=== PATIENT | female | born 1955 | race Caucasian/White ===

== ENCOUNTER → 2017-11-04 09:10 | Outpatient (CLI) | payer OTHER, SELFPAY ==
[2017-11-04 10:58] LABS: Add Manual Diff / Slide Review NO; Basophils Percent Auto 0.8 % (0-2); Eosinophils Percent Auto 1.1 % (2-4); Hematocrit 46.5 % (36-46); Hemoglobin 15.8 g/dL (12.0-16.0); Lymphocytes Percent Auto 24.5 % (25-40); Mean Corpuscular Hemoglobin 34.1 PG (26-34); Mean Corpuscular Volume 100.4 fL (80-100); Monocytes Percent Auto 7.3 % (3-14); Neutrophils Absolute Auto 4500 /uL (3000-5900); Neutrophils Percent Auto 66.3 % (50-75); Platelet Count 252 X10^3/uL (150-400); Red Blood Cell Count 4.64 X10^6/uL (4.0-5.2); Red Cell Distribution Width 13.3 % (11.6-14.8); White Blood Cell Count 6.8 X10^3/uL (4.5-11.0)
[2017-11-04 11:36] LABS: Alanine Aminotransferase 26 IU/L (9-52); Albumin 4.4 g/dL (3.5-5.0); Albumin Globulin Ratio 1.7 (1.0-2.8); Alkaline Phosphatase 47 U/L (38-126); Aspartate Aminotransferase 34 IU/L (14-36); BUN Creatinine Ratio 16.3 (6-22); Bilirubin Total 0.4 mg/dL (0.2-1.3); Blood Urea Nitrogen 13 mg/dL (7-17); Calcium 9.6 mg/dL (8.4-10.2); Carbon Dioxide 33 mmol/L (22-32); Chloride 104 mmol/L (98-107); Cholesterol 198 mg/dL (140-199); Estimated Glomerular Filt Rate > 60.0 mL/min (>60); Globulin 2.6 g/dL (1.7-4.1); Glucose 102 mg/dL (80-110); HDL Cholesterol 83 mg/dL (40-60); HEMOLYSIS < 15 (0-50); LDL Cholesterol Calculated 94 mg/dL (<100); Sodium 144 mmol/L (137-145); Triglycerides 106 mg/dL (35-150)
[2017-11-04 11:37] LABS: Potassium 5.6 mmol/L (3.4-5.1)
[2017-11-04 11:43] LABS: Creatinine Urine Random 42.7 mg/dL
[2017-11-04 11:48] LABS: Microalbumin Urine Random < 0.6 mg/dL (0-1.6)
[2017-11-04 12:00] LABS: Thyroid Stimulating Hormone 3.29 uIU/mL (0.47-4.68)
== END ==
PROVIDERS: Visit Provider Registered Nurse
DX: I10 Essential (primary) hypertension (principal)
CPT/HCPCS: 36415; 80053; 80061; 82043; 82570; 84443; 85025

== ENCOUNTER → 2017-12-05 12:46 | Outpatient (CLI) | payer OTHER, SELFPAY ==
--- NOTE | 2017-12-05 12:53 | DI.MG.S_ITS ---
BILATERAL DIGITAL SCREENING MAMMOGRAM 3D/2D WITH CAD: 12/05/2017 CLINICAL: Routine screening. Comparison is made to exams dated: 06/06/2015 mammogram, 09/28/2012 mammogram, and 03/08/2009 mammogram - [facility]. The tissue of both breasts is heterogeneously dense. This may lower the sensitivity of mammography. Current study was also evaluated with a Computer Aided Detection (CAD) system. No significant masses, calcifications, or other findings are seen in either breast. There has been no significant interval change. IMPRESSION: NEGATIVE There is no mammographic evidence of malignancy. A 1 year screening mammogram is recommended.(12/06/2018) This exam was interpreted at Station ID: [id number]. NOTE: For mammograms, a report in lay terms will be sent to the patient. Approximately 15% of breast malignancies will not be visualized mammographically. In the management of a palpable breast mass, a negative mammogram must not discourage biopsy of a clinically suspicious lesion. Electronically Signed By: Marie castrejon/clayton:12/05/2017 14:30:55 letter sent: Normal Exam ACR BI-RADS Category 1: Negative 3341F
--- NOTE | 2017-12-05 12:53 | DI.RAD.S_ITS ---
This blank DEXA report has been sent in error by the PACS system. The correct and complete report will be forthcoming in 1-2 days. Thank you for your patience and understanding. Dictated by: Amari Brand M.D. on 12/05/2017 at 13:47 Approved by: Amari Brand M.D. on 12/05/2017 at 13:49
[2017-12-05 14:21] LABS: Alanine Aminotransferase 25 IU/L (9-52); Albumin 4.4 g/dL (3.5-5.0); Alkaline Phosphatase 47 U/L (38-126); Aspartate Aminotransferase 22 IU/L (14-36); BUN Creatinine Ratio 25.7 (6-22); Bilirubin Total 0.3 mg/dL (0.2-1.3); Blood Urea Nitrogen 18 mg/dL (7-17); Calcium 9.8 mg/dL (8.4-10.2); Carbon Dioxide 33 mmol/L (22-32); Chloride 97 mmol/L (98-107); Estimated Glomerular Filt Rate > 60.0 mL/min (>60); Globulin 2.2 g/dL (1.7-4.1); Glucose 108 mg/dL (80-110); HEMOLYSIS < 15 (0-50); Potassium 3.9 mmol/L (3.4-5.1); Sodium 139 mmol/L (137-145); Total Protein 6.6 g/dL (6.3-8.2)
== END ==
PROVIDERS: Family Provider Family Medicine; PCP Family Medicine; Visit Provider Registered Nurse
DX: Z12.31 Encounter for screening mammogram for malignant neoplasm of breast (principal); Z13.820 Encounter for screening for osteoporosis; M81.0 Age-related osteoporosis without current pathological fracture; Z78.0 Asymptomatic menopausal state; I10 Essential (primary) hypertension; F17.200 Nicotine dependence, unspecified, uncomplicated; Z85.42 Personal history of malignant neoplasm of other parts of uterus
CPT/HCPCS: 36415; 77063; 77067; 77080; 80053

== ENCOUNTER → 2019-08-18 15:26 | Outpatient (CLI) | payer OTHER, MEDICARE, SELFPAY ==
[2019-08-18 17:04] LABS: Appearance Urine UA SL CLOUDY; Bilirubin Urine UA NEGATIVE (NEGATIVE); Color Urine UA YELLOW; Glucose Urine UA NEGATIVE (Negative); Ketones Urine UA NEGATIVE (NEGATIVE); Leukocyte Esterase Urine UA 2+ (NEGATIVE); Nitrite Urine UA POSITIVE (Negative); Occult Blood Urine UA 3+ (Negative); Protein Urine UA 1+ (Negative); Specific Gravity Urine UA <=1.005 (1.000-1.035); Urobilinogen Urine UA 0.2 E.U./dL (0.2)
[2019-08-18 17:14] LABS: Amorphous Sediment Urine 1+; Bacteria Urine Moderate (10-30); RBC Urine 1-5/HPF (0-5/HPF); Squamous Epithelial Cell Urine 0-1 /HPF (0-5/HPF); WBC Urine 10-30/HPF (0-5/HPF)
[2019-08-18 17:15] LABS: Culture Indicated Urine Specimen Cultured
== END ==
PROVIDERS: PCP Student in an Organized Health Care Education/Training Program; Referring Provider Student in an Organized Health Care Education/Training Program; Visit Provider Student in an Organized Health Care Education/Training Program
DX: R30.0 Dysuria (principal)
CPT/HCPCS: 81001; 87077; 87086; 87186

== ENCOUNTER → 2019-08-24 15:55 | Outpatient (CLI) | payer OTHER, MEDICARE, SELFPAY ==
[2019-08-24 18:12] LABS: BUN Creatinine Ratio 11.8 (6-22); Blood Urea Nitrogen 8 mg/dL (7-17); Calcium 9.8 mg/dL (8.4-10.2); Carbon Dioxide 26 mmol/L (22-32); Chloride 96 mmol/L (98-107); Estimated Glomerular Filt Rate > 60.0 mL/min (>60); Glucose 85 mg/dL (80-110); HEMOLYSIS < 15 (0-50); Potassium 4.4 mmol/L (3.4-5.1); Sodium 132 mmol/L (137-145)
== END ==
PROVIDERS: PCP Student in an Organized Health Care Education/Training Program; Referring Provider Student in an Organized Health Care Education/Training Program; Visit Provider Student in an Organized Health Care Education/Training Program
DX: I10 Essential (primary) hypertension (principal)
CPT/HCPCS: 36415; 80048

== ENCOUNTER → 2019-09-13 11:09 | Outpatient (CLI) | payer OTHER, MEDICARE, SELFPAY ==
[2019-09-14 09:57] LABS: COVID19 Sendout Not Detected (Not Detect)
== END ==
PROVIDERS: PCP Student in an Organized Health Care Education/Training Program; Visit Provider Student in an Organized Health Care Education/Training Program
DX: Z01.812 Encounter for preprocedural laboratory examination (principal)
CPT/HCPCS: 87635

== ENCOUNTER 2019-09-16 06:26 | Day surgery (SDC) | payer OTHER, SELFPAY ==
[2019-09-16] MEDS: CATARACT EYE COMPOUND (10 DROPS/SYRINGE) 3 DROPS EYE-OP (06:56)
[2019-09-16] MEDS: PROPARACAINE 0.5% OPHTH SOL 2 DROPS EYE-OP (06:56)
[2019-09-16 06:58] VITALS: BP 160/81; PULSE 77; RESP 16; TEMP 36.4; O2SAT 98; BMI 22.4
--- NOTE | 2019-09-16 07:29 | PM.PREOP ---
Pre-operative Note COVID-19 COVID-19 status: Negative Result date/Date tested (Pos, Neg/Pending): 09/13/19 Interval Note History & Physical reviewed/Exam performed by Physician: Yes Changes to H&P: No
--- NOTE | 2019-09-16 07:51 | SUR.OPER ---
Supine on eye stretcher, head on extension cradle secured with tape. Arms tucked at sides with blanket. Pillow under knees.
[2019-09-16] MEDS: PHENYLEPHRINE/LIDOCAINE VIAL (OR) 0.2 ML EYE-OP (07:58)
[2019-09-16] MEDS: MOXIFLOXACIN INJ 5 MG/ML VIAL EYE-OP (07:59)
[2019-09-16] MEDS: CHONDROIDTIN/SOD HYALURONATE 1.05 ML SYRINGE INTRAOCULA (07:59)
[2019-09-16] MEDS: TETRACAINE 0.5% OPHTH DROPS 4 ML 2 DROPS EYE-OP (08:00)
[2019-09-16] MEDS: LIDOCAINE 2% INJ SDV 2 ML INJ (08:00)
[2019-09-16] MEDS: BALANCED SALT IRRIG SOLN NO.2 500 ML, EPINEPHrine 1 MG IRR (08:01)
--- NOTE | 2019-09-16 08:13 | PM.OP.1 ---
Procedure & Clinicians Procedure: Cataract extraction with intraocular lens implant, right. Same procedure as scheduled: Yes Indications: Visually significant age related nuclear sclerosis Surgeon: Jose Armando Veras Click Yes if Unassisted: Yes Anesthesia Type: MAC +/- Operative Notes Procedure in detail: The patient was brought to the operating suite. The correct patient, surgical site and lens were confirmed. 0.5 % tetracaine drops were placed in the right eye. The patient was prepped and draped in the typical sterile manner. A lid speculum was placed in the eye. 2% lidocaine was placed on the eye. A paracentesis port was created with a side-port blade. 0.1 mL of 1% preservative free lidocaine with phenylephrine was injected into the anterior chamber. Viscoelastic was injected into the anterior chamber. A 2.6mm keratome was used to create a clear corneal temporal incision. Cystotome and Utrata forceps were used to create a continuous curvilinear capsulorrhexis. Balanced salt solution was used to hydrodissect the nucleus. Phacoemulsification was used to remove the lens. The capsular bag was inflated with viscoelastic. A Navarro ZCBOO +22.5D lens was inserted into the capsule. Viscoelastic was removed and the wound hydrated. The wound was found to be leak free and the eye was assessed to be at normal physiologic pressure. 0.1mL Moxifloxacin (5mg/mL) preservative free was injected into the anterior chamber. The lid speculum was removed and the patient left the operating room in excellent condition. Complications: none Post-operative Condition: stable Disposition: same day surgery
[2019-09-16 08:16] VITALS: BP 140/67; PULSE 69; RESP 12; TEMP 36.1; O2SAT 97
== END 2019-09-16 08:34 | disposition home or self-care (01) ==
LOC: OR 06:28
PROVIDERS: PCP Student in an Organized Health Care Education/Training Program; Referring Provider Ophthalmology; Visit Provider Ophthalmology
PROC: (CPT 66984; principal; 2019-09-16 07:45)
DX: H25.11 Age-related nuclear cataract, right eye (principal); I10 Essential (primary) hypertension; F32.9 Major depressive disorder, single episode, unspecified
CPT/HCPCS: 66984 ×2; J0171; J2250

== ENCOUNTER → 2019-09-27 14:39 | Outpatient (CLI) | payer OTHER, SELFPAY ==
[2019-09-28 20:27] LABS: COVID19 Sendout Not Detected (Not Detect)
== END ==
PROVIDERS: PCP Student in an Organized Health Care Education/Training Program; Visit Provider Physician Assistant
DX: Z01.812 Encounter for preprocedural laboratory examination (principal)
CPT/HCPCS: 87635

== ENCOUNTER 2019-09-30 06:43 | Day surgery (SDC) | payer OTHER, SELFPAY ==
[2019-09-30] MEDS: PROPARACAINE 0.5% OPHTH SOL 2 DROPS EYE-OP (07:36)
[2019-09-30] MEDS: CATARACT EYE COMPOUND (10 DROPS/SYRINGE) 3 DROPS EYE-OP (07:37)
[2019-09-30 07:39] VITALS: BP 147/78; PULSE 74; RESP 16; TEMP 36.3; O2SAT 94; BMI 22.2
--- NOTE | 2019-09-30 08:28 | PM.PREOP ---
Pre-operative Note COVID-19 COVID-19 status: Negative Result date/Date tested (Pos, Neg/Pending): 09/27/19 Interval Note History & Physical reviewed/Exam performed by Physician: Yes Changes to H&P: No
[2019-09-30] MEDS: MOXIFLOXACIN INJ 5 MG/ML VIAL EYE-OP (08:37)
[2019-09-30] MEDS: PHENYLEPHRINE/LIDOCAINE VIAL (OR) 0.2 ML EYE-OP (08:37)
[2019-09-30] MEDS: BALANCED SALT IRRIG SOLN NO.2 500 ML, EPINEPHrine 1 MG IRR (08:37)
[2019-09-30] MEDS: TETRACAINE 0.5% OPHTH DROPS 4 ML 2 DROPS EYE-OP (08:38)
[2019-09-30] MEDS: BALANCED SALT IRRIG SOLN NO.2 15 ML 5 ML IRR (08:38)
[2019-09-30] MEDS: LIDOCAINE 2% INJ SDV 2 ML INJ (08:38)
--- NOTE | 2019-09-30 09:00 | PM.OP.1 ---
Procedure & Clinicians Procedure: Cataract extraction with intraocular lens implant, left. Same procedure as scheduled: Yes Indications: Visually significant age related nuclear sclerosis Surgeon: Jose Armando Veras Click Yes if Unassisted: Yes Anesthesia Type: MAC +/- Operative Notes Procedure in detail: The patient was brought to the operating suite. The correct patient, surgical site and lens were confirmed. 0.5 % tetracaine drops were placed in the left eye. The patient was prepped and draped in the typical sterile manner. A lid speculum was placed in the eye. 2% lidocaine was placed on the eye. A paracentesis port was created with a side-port blade. 0.1 mL of 1% preservative free lidocaine with phenylephrine was injected into the anterior chamber. Viscoelastic was injected into the anterior chamber. A 2.6mm keratome was used to create a clear corneal temporal incision. Cystotome and Utrata forceps were used to create a continuous curvilinear capsulorrhexis. Balanced salt solution was used to hydrodissect the nucleus. Phacoemulsification was used to remove the lens. The capsular bag was inflated with viscoelastic. A Navarro ZCBOO 21.5D lens was inserted into the capsule. Viscoelastic was removed and the wound hydrated. The wound was found to be leak free and the eye was assessed to be at normal physiologic pressure. 0.1mL Moxifloxacin (5mg/mL) preservative free was injected into the anterior chamber. The lid speculum was removed and the patient left the operating room in excellent condition. Complications: none Post-operative Condition: stable Disposition: same day surgery
[2019-09-30 09:03] VITALS: BP 142/67; PULSE 73; RESP 16; TEMP 36.7; O2SAT 97
--- NOTE | 2019-09-30 10:09 | SUR.PHASEII ---
0910 Care turned over to Parth Downey RN to take the patient out the door when ride arrived. Ambulated her to the bathroom, voided, stable on feet, tolerated PO intake well. Stable.
== END 2019-09-30 09:40 | disposition home or self-care (01) ==
LOC: OR 06:44
PROVIDERS: PCP Student in an Organized Health Care Education/Training Program; Referring Provider Ophthalmology; Visit Provider Ophthalmology
PROC: (CPT 66984; principal; 2019-09-30 08:15)
DX: H25.12 Age-related nuclear cataract, left eye (principal); I10 Essential (primary) hypertension
CPT/HCPCS: 66984; J0171; J2250

== ENCOUNTER → 2019-11-24 14:27 | Outpatient (CLI) | payer OTHER, MEDICARE, SELFPAY ==
--- NOTE | 2019-11-24 14:29 | DI.MG.S_ITS ---
BILATERAL DIGITAL SCREENING MAMMOGRAM 3D/2D WITH CAD: 11/24/2019 CLINICAL: Family history of breast cancer. Routine screening. Comparison is made to exams dated: 12/05/2017 mammogram, 06/06/2015 mammogram, and 09/28/2012 mammogram - [facility]. The tissue of both breasts is heterogeneously dense. This may lower the sensitivity of mammography. Current study was also evaluated with a Computer Aided Detection (CAD) system. There are linear fine calcifications in the right breast at 1 o'clock middle depth. These are more prominent and increased in number. No other significant masses, calcifications, or other findings are seen in either breast. IMPRESSION: INCOMPLETE: NEEDS ADDITIONAL IMAGING EVALUATION The linear fine calcifications in the right breast resemble vascular calcifications and are indeterminate. Mediolateral and spot magnification views are recommended. This exam was interpreted at Station ID: [id number]. NOTE: For mammograms, a report in lay terms will be sent to the patient. Approximately 15% of breast malignancies will not be visualized mammographically. In the management of a palpable breast mass, a negative mammogram must not discourage biopsy of a clinically suspicious lesion. Electronically Signed By: Ken Hernandez M.D. aty/:11/24/2019 14:54:04 letter sent: Additional Imaging Needed ACR BI-RADS Category 0: Incomplete 3340F
--- NOTE | 2019-11-24 14:29 | DI.RAD.S_ITS ---
PROCEDURE: XR DEXA AXIAL SKELETON INDICATIONS: Osteoporosis COMPARISON: [facility], CR, XR DEXA AXIAL SKELETON, 12/05/2017, 13:36. FINDINGS: This blank DEXA report has been sent in error by the PACS system. The correct and complete report will be forthcoming in 1-2 days. Thank you for your patience and understanding. Dictated by: Jessica Chakraborty MD, PhD on 11/24/2019 at 16:29 Approved by: Jessica Chakraborty MD, PhD on 11/24/2019 at 16:29
== END ==
PROVIDERS: PCP Student in an Organized Health Care Education/Training Program; Referring Provider Student in an Organized Health Care Education/Training Program; Visit Provider Student in an Organized Health Care Education/Training Program
DX: Z12.31 Encounter for screening mammogram for malignant neoplasm of breast (principal); Z80.3 Family history of malignant neoplasm of breast; M85.88 Other specified disorders of bone density and structure, other site; Z78.0 Asymptomatic menopausal state; F17.200 Nicotine dependence, unspecified, uncomplicated
CPT/HCPCS: 77063; 77067; 77080

== ENCOUNTER → 2019-12-22 08:27 | Outpatient (CLI) | payer OTHER, SELFPAY ==
--- NOTE | 2019-12-22 08:29 | DI.MG.S_ITS ---
UNILATERAL RIGHT DIGITAL DIAGNOSTIC MAMMOGRAM 3D/2D WITH ADDITIONAL VIEWS: 12/22/2019 CLINICAL: Additional evaluation requested from prior study. Comparison is made to exams dated: 11/24/2019 mammogram, 12/05/2017 mammogram, and 06/06/2015 mammogram - [facility]. The tissue of right breast is heterogeneously dense. This may lower the sensitivity of mammography. The grouped fine calcifications in the right breast at 1 o'clock middle depth are not seen on additional views. No other significant masses or calcifications are seen in the breast. IMPRESSION: BENIGN There is no mammographic evidence of malignancy. A 1 year screening mammogram is recommended. This exam was interpreted at Station ID: [id number]. NOTE: For mammograms, a report in lay terms will be sent to the patient. Approximately 15% of breast malignancies will not be visualized mammographically. In the management of a palpable breast mass, a negative mammogram must not discourage biopsy of a clinically suspicious lesion. Electronically Signed By: Faizan parsons/:12/22/2019 09:36:43 letter sent: Normal Exam ACR BI-RADS Category 2: Benign Finding(s) 3342F
== END ==
PROVIDERS: PCP Student in an Organized Health Care Education/Training Program; Referring Provider Student in an Organized Health Care Education/Training Program; Visit Provider Student in an Organized Health Care Education/Training Program
DX: R92.8 Other abnormal and inconclusive findings on diagnostic imaging of breast (principal)
CPT/HCPCS: 77065; G0279

== ENCOUNTER → 2022-11-07 08:41 | Outpatient (CLI) | payer OTHER, SELFPAY ==
[2022-11-07 09:58] LABS: Add Manual Diff / Slide Review NO; Basophils Absolute Auto 100 /uL (0-100); Eosinophils Absolute Auto 0 /uL (0-450); Eosinophils Percent Auto 0.6 % (2-4); Hematocrit 44.9 % (36-46); Hemoglobin 15.4 g/dL (12.0-16.0); Lymphocytes Absolute Auto 1500 /uL (1100-4500); Lymphocytes Percent Auto 29.2 % (25-40); Mean Corpuscular HGB Conc 34.3 % (30-36); Mean Corpuscular Hemoglobin 34.3 PG (26-34); Monocytes Absolute Auto 500 /uL (0-900); Monocytes Percent Auto 9.6 % (3-14); Neutrophils Absolute Auto 3100 /uL (1500-7000); Neutrophils Percent Auto 59.6 % (50-75); Platelet Count 237 X10^3/uL (150-400); Red Blood Cell Count 4.49 X10^6/uL (4.0-5.2); White Blood Cell Count 5.1 X10^3/uL (4.5-11.0)
[2022-11-07 10:51] LABS: Alanine Aminotransferase 31 IU/L (<35); Albumin 4.5 g/dL (3.5-5.0); Albumin Globulin Ratio 1.5 (1.0-2.8); Alkaline Phosphatase 56 U/L (38-126); Aspartate Aminotransferase 39 IU/L (14-36); BUN Creatinine Ratio 14.5 (6-22); Bilirubin Total 0.4 mg/dL (0.2-1.3); Blood Urea Nitrogen 9 mg/dL (7-17); Calcium 9.7 mg/dL (8.4-10.2); Carbon Dioxide 31 mmol/L (22-32); Chloride 97 mmol/L (98-107); Cholesterol 283 mg/dL (140-199); Estimated Glomerular Filt Rate > 60 mL/min (>60); Glucose 104 mg/dL (80-110); HDL Cholesterol 86 mg/dL (40-60); HEMOLYSIS < 15 (0-50); LDL Cholesterol Calculated 176 mg/dL (<100); Potassium 5.2 mmol/L (3.4-5.1); Sodium 136 mmol/L (137-145); Total Protein 7.5 g/dL (6.3-8.2); Triglycerides 103 mg/dL (35-150)
[2022-11-07 11:19] LABS: TSH w/ Reflex to FT4 2.84 uIU/mL (0.47-4.68)
[2022-11-07 11:34] LABS: Hep C Virus Ab w/Reflex Quant NEGATIVE s/c (NEGATIVE)
[2022-11-07 15:37] LABS: Creatinine Urine Random 86.9 mg/dL
[2022-11-07 15:41] LABS: Microalbumin Urine Random 0.7 mg/dL (0-1.6)
== END ==
PROVIDERS: PCP Family Medicine; Referring Provider Family Medicine; Visit Provider Family Medicine
DX: E78.2 Mixed hyperlipidemia (principal); F34.1 Dysthymic disorder; I10 Essential (primary) hypertension; M81.0 Age-related osteoporosis without current pathological fracture
CPT/HCPCS: 36415; 80053; 80061; 82043; 82570; 84443; 85025; 86803

== ENCOUNTER → 2022-11-25 | Outpatient (CLI) | payer OTHER, SELFPAY ==
--- NOTE | 2022-11-25 13:44 | DI.MG.S_ITS ---
BILATERAL DIGITAL SCREENING MAMMOGRAM 3D/2D WITH CAD: 11/25/2022 CLINICAL: Routine screening. Family history of breast cancer. Comparison is made to exams dated: 11/24/2019 mammogram, 12/05/2017 mammogram, and 06/06/[address] - [facility]. Both breasts are heterogeneously dense, which may obscure small masses (category c / 51-75% glandular tissue). Current study was also evaluated with a Computer Aided Detection (CAD) system. No significant masses, calcifications, or other findings are seen in either breast. IMPRESSION: NEGATIVE There is no mammographic evidence of malignancy. A 1 year screening mammogram is recommended. Based on the Tyrer Cuzick model (a risk assessment model) the patient's lifetime risk is 16.6% and her 10 year risk is 9.4%. According to the ACR, ACS, and NCCN guidelines, an annual breast MRI exam along with mammogram is recommended if the patient's lifetime risk is 20% or greater. This exam was interpreted at Station ID: [id number]. NOTE: For mammograms, a report in lay terms will be sent to the patient. Approximately 15% of breast malignancies will not be visualized mammographically. In the management of a palpable breast mass, a negative mammogram must not discourage biopsy of a clinically suspicious lesion. Electronically Signed By: Rhonda rosado/clayton:11/25/2022 18:15:14 letter sent: Normal Exam ACR BI-RADS Category 1: Negative 3341F
--- NOTE | 2022-11-25 13:44 | DI.RAD.S_ITS ---
Bone Density Report Name: MANDY TAPIA Age: 67 Sex: Female Ethnicity: White Date of : 1955 Indication: osteopenia; Referring Provider: JOSELO PEPE Study: Bone densitometry was performed. Exam Date: November 25, 2022 Accession number: [id number] Bone Density: Region BMD T-score Z-score Classification AP Spine(L1, L2) 0.816 -1.5 0.4 Osteopenia Femoral Neck (Left) 0.625 -2.0 -0.3 Osteopenia Total Hip (Left) 0.701 -2.0 -0.6 Osteopenia Femoral Neck (Right) 0.600 -2.2 -0.5 Osteopenia Total Hip (Right) 0.677 -2.2 -0.8 Osteopenia Total Hip Mean 0.689 -2.1 -0.7 Osteopenia World Health Organization criteria for BMD impression classify patients as: Normal (T-score at or above -1.0), Osteopenia (T-score between -1.0 and -2.5), or Osteoporosis (T-score at or below -2.5). 10-year Fracture Risk(1): Major Osteoporotic Fracture 16% Hip Fracture 6.4% Reported Risk Factors: [place] (), Neck BMD=0.600, BMI=22.5, smoking, alcohol use (1) FRAX(R) Version 3.08. Fracture probability calculated for an untreated patient. Fracture probability may be lower if the patient has received treatment. Previous Exams: -- Region Exam Age BMD T-score BMD Change BMD Change Date g/cm2 vs Baseline vs Previous -- AP Spine (L1-L2) 11/25/2022 67 0.816 -1.5 -0.029 (-3.4%)# -0.029 (-3.4%)# 11/24/2019 64 0.845 -1.2 Total Hip(Left) 11/25/2022 67 0.701 -2.0 0.006 (0.8%)# 0.006 (0.8%)# 11/24/2019 64 0.695 -2.0 Total Hip(Right) 11/25/2022 67 0.677 -2.2 -0.013 (-1.9%)# -0.013 (-1.9%)# 11/24/2019 64 0.690 -2.1 -- *Denotes significance at 95% confidence level, LSC for AP Spine = 0.022 g/cm2, LSC for Total Hip = 0.027 g/cm2 # Denotes dissimilar scan types or analysis methods Impression: The patient has low bone mass, based on the Right Total Hip T-score. The patient has an estimated ten-year risk of hip fracture of 6.4% and an estimated ten-year risk of major fracture of 16%, based on the WHO FRAX algorithm. The patient has risk factors, including: smoking, excessive alcohol use. No significant bone loss was observed. Discussion: BONE DENSITY IS LOW AT ONE OR MORE SKELETAL SITES. THE PATIENT'S BMD AND CLINICAL RISK FACTORS CONTRIBUTE TO THIS PATIENT'S INCREASED RISK OF FRACTURE. This patient's lowest T-score is low at one or more skeletal sites. It meets the World Health Organization's (WHO) criteria for low bone mass (T-score between -1.0 and -2.5). The patient's 10-year risk of hip fracture as calculated by FRAX exceeds the threshold where pharmacological therapy is recommended by the National Osteoporosis Foundation (NOF). However, all treatment decisions require clinical judgment and consideration of individual patient factors, including patient preferences, comorbidities, previous drug use, risk factors not captured in the FRAX model (e.g., frailty, falls, vitamin D deficiency, increased bone turnover, interval significant decline in bone density) and possible under or overestimation of fracture risk by FRAX. The patient should follow a healthful lifestyle (good nutrition with adequate calcium and vitamin D, and appropriate weight-bearing exercise). Follow-Up: Consider a repeat BMD and Vertebral Fracture Assessment (VFA) exam in 2 years or sooner if medically necessary, to reassess this patient's status. Reported by: VICENTE ADAMS M.D. on 11/25/2022 3:13:00 PM.
--- NOTE | 2022-11-25 13:44 | DI.CT.S_ITS ---
PROCEDURE: CT LUNG LOW DOSE SCREENING INDICATIONS: 30+ pack year smoking TECHNIQUE: Noncontrast 2.0-2.5 mm thick sections acquired from the pulmonary apices to the posterior costophrenic angles. 7 mm thick axial MIP, and 5 mm coronal and sagittal reformats were then acquired. A low radiation dose technique was utilized. COMPARISON: None. FINDINGS: Image quality: Diagnostic, given the low radiation dose technique. Lungs and pleura: Biapical pleuroparenchymal scarring. Moderate upper lobe predominant centrilobular and paraseptal emphysematous changes. There is an 11 mm nodule within right upper lobe with spiculated margins (3/86). Nodule in the right middle lobe measuring 7 mm and surrounding ground-glass and possible spiculations (3/160). Ground-glass opacity within the right upper lobe (3/60) measuring 6 mm. Scattered calcified granulomas. There are a few additional scattered small nodules measuring 3 mm or less. Focus of peripheral ground-glass within the right lower lobe with lucent lung centrally. Mediastinum: Heart size is normal. Moderate three-vessel coronary artery calcifications. No pericardial effusion. No mediastinal adenopathy by size criteria. Thoracic aorta and central pulmonary arteries are normal in size. Atherosclerotic vascular calcifications. Esophagus is normal in caliber. Small hiatal hernia. Bones and chest wall: No suspicious bony lesions. Degenerative changes of the spine. No vertebral body compression fractures. No axillary or supraclavicular adenopathy by size criteria. Thyroid gland contains a 1.7 cm hypodensity in the right thyroid lobe. Abdomen: Left hepatic lobe cyst. Additional hypodensities within the liver, favored to represent simple cysts. Right hepatic lobe calcification. IMPRESSION: 1. Right upper lobe spiculated nodule with solid component measuring 11 mm. 2. Nodule in the right middle lobe measuring 7 mm with surrounding ground-glass and possible spiculations. 3. Additional scattered micro nodules and foci of ground-glass. 4. Moderate centrilobular and paraseptal emphysematous changes. LUNG-RADS 4 B; recommend PET-CT for further evaluation. Dictated by: Danish Zhu M.D. on 11/25/2022 at 15:47 Approved by: Danish Zhu M.D. on 11/25/2022 at 15:59
== END ==
LOC: MAMMO 13:43
PROVIDERS: PCP Family Medicine; Referring Provider Family Medicine; Visit Provider Family Medicine
DX: Z12.31 Encounter for screening mammogram for malignant neoplasm of breast (principal); M85.851 Other specified disorders of bone density and structure, right thigh; Z78.0 Asymptomatic menopausal state; Z12.2 Encounter for screening for malignant neoplasm of respiratory organs; Z80.3 Family history of malignant neoplasm of breast; R05.3 Chronic cough; F17.210 Nicotine dependence, cigarettes, uncomplicated; Z90.710 Acquired absence of both cervix and uterus
CPT/HCPCS: 71271; 77063; 77067; 77080

== ENCOUNTER 2023-01-06 14:46 | Observation (INO) | payer OTHER, SELFPAY ==
[2023-01-06] VITALS (35 sets, daily range): BP systolic 113–167; BP diastolic 52–88; PULSE 66–99; RESP 11–20; TEMP 35.9–36.6; O2SAT 89–99; BMI 20.9
--- NOTE | 2023-01-06 | DI.CT.S_ITS ---
PROCEDURE: CT DRN/CHEST TUB INSERT THORAX Sedation analgesia for approximately 15 minutes. INDICATIONS: CHEST TUBE PLACEMENT TECHNIQUE: The indications, alternatives, benefits, risks, and possible complications of the procedure were communicated to the patient. Informed written consent from the patient was obtained and placed in the chart. Continuous EKG and hemodynamic monitoring was started by trained personnel. The patient was brought to the CT suite and pot firer spiral CT imaging was performed with localization grid. The appropriate site for percutaneous access to the pneumothorax target was marked, was prepped and draped sterilely, and was infused with local anaesthesia. Under CT guidance, a Chiba needle set was advanced to the pneumothorax. A wire was placed through the Chiba needle and the tract was dilated. A drainage catheter was placed over the wire and into the pneumothorax. Aspiration of the pneumothorax was performed. The drain was secured. The patient was sent for post-procedure monitoring. COMPARISON: [facility], CT, CT BIOPSY LUNG RT, 01/06/2023, 8:45. FINDINGS: Catheter site: Right upper lobe anterior. Needle: 8.5 Malay pigtail drainage catheter. Medications: 1% lidocaine for local anaesthesia. IV Fentanyl and Versed for conscious sedation for 15 minutes (see nursing record). Complications: None. Moderate size pneumothorax is decreased postprocedure. Atelectatic lung on the left is improved. IMPRESSION: Successful CT-guided pigtail pleural drainage catheter was placed in the right upper thorax. Dictated by: Jermain Torres M.D. on 01/06/2023 at 14:10 Approved by: Jermian Torres M.D. on 01/06/2023 at 14:18
--- NOTE | 2023-01-06 06:56 | DI.CT.S_ITS ---
PROCEDURE: CT BIOPSY LUNG RT Sedation analgesia for 20 minutes. INDICATIONS: Suspicion of malignancy TECHNIQUE: The indications, alternatives, benefits, risks, and possible complications of the procedure were communicated to the patient. Informed written consent from the patient was obtained and placed in the chart. Continuous EKG and hemodynamic monitoring was started by trained personnel. The patient was brought to the CT suite and heel scourer spiral CT imaging was performed with localization grid. The appropriate site for percutaneous access to the biopsy target was marked, was prepped and draped sterilely, and was infused with local anaesthesia. Under CT guidance, a core biopsy trocar and needle set was advanced to the biopsy target, and specimen(s) were obtained. The trocar and needle were then removed, and the patient was sent for post-procedure monitoring. COMPARISON: [facility], CT, CT LUNG LOW DOSE SCREENING, 11/25/2022, 13:48. [facility], NH, NH PET CT FUSION SKULL 2 THIGH, 12/11/2022, 9:00. [facility], CT, CT DRN/CHEST TUB INSERT THORAX, 01/06/2023, 12:38. FINDINGS: Biopsy site: Right upper lobe posterior spiculated nodule measuring approximately 1.3 cm. Needle: 18 gauge Temno gauge biopsy needle with introducer trocar. Number of passes: 4 Medications: 1% lidocaine for local anaesthesia. IV Fentanyl and Versed for conscious sedation for 20 minutes (see nursing record). Complications: Small to moderate right pneumothorax. Patient's oxygen saturations were 99% prior to the procedure. The patient was placed on 2 L of oxygen during the procedure. Patient's oxygen saturations were 95% post procedure on 2 L oxygen. IMPRESSION: Successful CT-guided biopsy of right upper lobe lesion. Small to moderate pneumothorax post procedure. Dr. Zuñiga was consulted. Plan to place percutaneous pigtail drainage catheter for pneumothorax evacuation. Dictated by: Jermain Torres M.D. on 01/06/2023 at 14:18 Approved by: Jermain Torres M.D. on 01/06/2023 at 14:23
[2023-01-06 07:56] LABS: Platelet Count 251 X10^3/uL (150-400)
[2023-01-06 08:00] LABS: Prothrombin Time 11.2 SECONDS (10.1-12.7)
[2023-01-06 08:03] LABS: PTT Partial Thromboplastin Tim 36 SECONDS (26-36)
--- NOTE | 2023-01-06 09:52 | PATH_ITS ---
[facility] Accession Number: [id number] No. of containers..01 Tissue . 01 Material submitted: . lung - RIGHT UPPER LOBE LUNG . 01 Diagnosis: A. Right Upper Lobe Lung, Biopsy: Adenocarcinoma, with mixed acinar and lepidic growth patterns. . COMMENT: The immunoprofile (see microscopic description) along with the morphology, is in support of lung primary. Clinical and radiographic correlation is necessary. MRV 01/14/2023 1544 Local . 01 Comment: As part of supervisor vendor quality, Dr. Conchita Werner also reviewed this case and agrees with the interpretation/diagnosis. . Provider Javid Landeros's office is notified of the preliminary findings on this case on 01/14/2023, directly reported to Donna LOPES). . 01 Electronically signed: . Nika Valdivia MD, Pathologist NPI- [id number] . 01 Gross description: . The specimen is received in formalin labeled with the patient's name, , and no additional designation, and consists of four campa-brown needle core biopsies ranging in length from 0.2 to 0.9 cm and averaging 0.1 cm in diameter. The specimen is submitted entirely in cassette A1. ([id number]) /CARMEN 01/07/2023 0956 Local . 01 Microscopic: . A panel of immunostains is performed on block A1 in order to ascertain the origin of the moderately differentiated adenocarcinoma, with appropriately staining external controls. The adenocarcinoma demonstrates the following immunoprofile: . TTF1: Positive (strong and diffuse). Napsin: Positive. CK7: Positive. CK20: Negative. CDX2: Negative. . * This test was developed and its performance characteristics determined by [facility]. It has not been cleared or approved by the U.S. Food and Drug Administration. The FDA has determined that such clearance or approval is not necessary. This test is used for clinical purposes. It should not be regarded as investigational or for research. . 01 Pathologist provided ICD-10: C34.90 . 01 CPT . 639100, G46551, Z06333 Specimen Comment: A courtesy copy of this report has been sent to [phone] Performed at: 01 [facility] [address] [place] [address] [id number] MD Faizan Alex MD Phone: [phone]
[2023-01-06] MEDS: fentaNYL 100 MCG/2 ML INJ IV ×2 (10:12→12:52)
[2023-01-06] MEDS: MIDAZOLAM 2 MG/2 ML VIAL IV (10:12)
--- NOTE | 2023-01-06 10:35 | SUR.PHASEII ---
Pt from Radiology in stretcher [facility] SBAR report from Ally at bedside. Dressing to right upper chest C/D/I. Lung sounds to right side very diminished. Pt denies pain just a discomfort to right anterior chest. Denies SOB. Pt resting on 2L oxygen via [place]. Dr Call here to see patient. Plan for CT placement in the next 30-60 minutes. Call MD for change in O2 Saturation.
[2023-01-06] MEDS: MIDAZOLAM 2 MG/2 ML VIAL 1 MG IV (12:52)
--- NOTE | 2023-01-06 14:20 | DI.RAD.S_ITS ---
PROCEDURE: XR CHEST 1V INDICATIONS: Post chest tube after lung biopsy. TECHNIQUE: One view of the chest was acquired. COMPARISON: [facility], CT, CT DRN/CHEST TUB INSERT THORAX, 01/06/2023, 12:38. [facility], CT, CT BIOPSY LUNG RT, 01/06/2023, 8:45. [facility], CT, CT LUNG LOW DOSE SCREENING, 11/25/2022, 13:48. FINDINGS: Surgical changes and devices: Right upper thorax pigtail drainage catheter. Lungs and pleura: Small right-sided pneumothorax measuring 1.6 cm. Mild opacity in the right upper lung due to atelectasis seen on prior CT. No pleural effusion. Left lung is clear. Mediastinum: Mediastinal contours appear normal. No mediastinal shift. Heart size is normal. Bones and chest wall: No suspicious bony lesions. Overlying soft tissues appear unremarkable. IMPRESSION: Small right-sided pneumothorax. Right upper thorax pigtail drainage catheter is in the expected position. Dictated by: Jermain Torres M.D. on 01/06/2023 at 14:24 Approved by: Jermain Torres M.D. on 01/06/2023 at 14:27
--- NOTE | 2023-01-06 14:35 | SUR.PHASEII ---
Pt from radiology on stretcher with CT to water seal and then attached to suction 20. Pt denies SOB and chest pain. Dressing to right anterior chest reinforced with tegaderm. No drainage at this time. Pt ready for transfere to floor.
[2023-01-06] MEDS: HYDROMORPHONE 1 MG INJ 0.5 MG IV (15:37)
--- NOTE | 2023-01-06 16:42 | P.HP_ITS ---
History of Present Illness History of Present Illness Date Patient Seen: 01/06/23 Time Patient Seen: 16:42 Chief complaint: lung mass Narrative: Sapna is a 59-year-old woman who presented today for a CT-guided right lung biopsy with Dr. Torres. The biopsy was performed successfully however there was a small pneumothorax following the procedure and Dr. Hernandez performed a right CT- guided pigtail catheter. There was a small residual pneumothorax on the post procedure film. She has no complaints. [facility]LY [facility] Medical History (Updated 01/06/23 @ 16:43 by Deo Zuñiga MD) Abdominal pain of unknown etiology Cervical cancer (1973) Surgical History Anesthesia History of bladder surgery Status post hysterectomy Family History Father Cancer Heart attack Mother No problems noted. Social History household members: family Smoking Status: Current some day smoker alcohol intake: former Meds Home Medications and Allergies Home Medications Medication Instructions Recorded Confirmed Type albuterol sulfate 90 mcg/actuation 2 puff inhalation Q6H PRN 11/07/22 01/06/23 Rx aerosol inhaler shortness of breath or wheezing #8.5 grams lisinopril 20 mg tablet 20 mg PO DAILY #90 tabs 11/07/22 01/06/23 Rx atorvastatin 20 mg tablet 20 mg PO BEDTIME #30 tabs 11/20/22 01/06/23 Rx bupropion HCl 150 mg 24 hr tablet, 150 mg PO QAM #60 tabs 11/20/22 01/06/23 Rx extended release (Wellbutrin XL) nicotine 21 mg/24 hr daily 1 patch transdermal DAILY #28 ea 11/20/22 01/06/23 Rx transdermal patch (Nicoderm CQ) Allergies Allergy/AdvReac Type Severity Reaction Status Date / Time No Known Drug Allergies Allergy Verified 01/06/23 07:37 Exam Vital Signs (past 8 hours): - 01/06/23 09:00 01/06/23 09:05 01/06/23 09:10 Temperature Pulse Rate 76 76 78 Respiratory Rate 12 12 12 Blood Pressure 151/79 H 150/79 H 150/70 H Pulse Oximetry 99 98 98 Oxygen Delivery Method Nasal Cannula Nasal Cannula Nasal Cannula Oxygen Flow Rate 2 2 2 01/06/23 09:15 11/06/23 09:20 01/06/23 09:25 Temperature Pulse Rate 76 76 99 H Respiratory Rate 12 12 11 L Blood Pressure 146/74 H 153/76 H 152/77 H Pulse Oximetry 99 99 99 Oxygen Delivery Method Nasal Cannula Nasal Cannula Nasal Cannula Oxygen Flow Rate 2 2 2 01/06/23 09:30 01/06/23 09:40 01/06/23 09:45 Temperature Pulse Rate 75 75 76 Respiratory Rate 13 18 18 Blood Pressure 154/67 H 156/69 H 156/69 H Pulse Oximetry 98 93 94 Oxygen Delivery Method Nasal Cannula Nasal Cannula Nasal Cannula Oxygen Flow Rate 2 2 2 01/06/23 09:56 01/06/23 10:01 01/06/23 10:09 Temperature Pulse Rate 75 78 73 Respiratory Rate 14 16 16 Blood Pressure 154/74 H 154/74 H 139/66 Pulse Oximetry 95 97 96 Oxygen Delivery Method Nasal Cannula Nasal Cannula Nasal Cannula Oxygen Flow Rate 2 2 2 01/06/23 10:28 01/06/23 10:30 01/06/23 10:33 Temperature Pulse Rate 72 70 Respiratory Rate 16 12 Blood Pressure 140/74 139/66 Pulse Oximetry 95 95 Oxygen Delivery Method Nasal Cannula Nasal Cannula Nasal Cannula Oxygen Flow Rate 2 2 01/06/23 10:38 01/06/23 10:52 01/06/23 11:13 Temperature Pulse Rate 68 70 68 Respiratory Rate 12 20 14 Blood Pressure 137/70 117/53 L 113/61 Pulse Oximetry 94 96 97 Oxygen Delivery Method Nasal Cannula Nasal Cannula Nasal Cannula Oxygen Flow Rate 2 2 2 01/06/23 12:52 01/06/23 12:58 01/06/23 13:05 Temperature Pulse Rate 70 71 72 Respiratory Rate 18 16 16 Blood Pressure 167/79 H 153/72 H 146/70 H Pulse Oximetry 96 95 93 Oxygen Delivery Method Nasal Cannula Nasal Cannula Nasal Cannula Oxygen Flow Rate 2 2 2 01/06/23 13:10 01/06/23 13:30 01/06/23 13:39 Temperature Pulse Rate 72 73 Respiratory Rate 15 16 Blood Pressure 167/77 H 146/72 H Pulse Oximetry 94 93 Oxygen Delivery Method Nasal Cannula Nasal Cannula Room Air Oxygen Flow Rate 2 2 01/06/23 13:45 01/06/23 14:00 01/06/23 14:29 Temperature 97.4 F L Pulse Rate 72 69 69 Respiratory Rate 16 16 14 Blood Pressure 152/73 H 158/72 H 149/70 H Pulse Oximetry 89 L 92 98 Oxygen Delivery Method Nasal Cannula Nasal Cannula Nasal Cannula Oxygen Flow Rate 3 3 3 01/06/23 14:43 01/06/23 14:58 Temperature Pulse Rate 76 69 Respiratory Rate 14 16 Blood Pressure 155/87 H 159/72 H Pulse Oximetry 97 97 Oxygen Delivery Method Nasal Cannula Nasal Cannula Oxygen Flow Rate 3 3 Oxygen Delivery Method Nasal Cannula Oxygen Flow Rate 3 Narrative Exam Narrative: No shortness of breath There is no obvious air leak in the water seal chamber Objective Labs 01/06/23 07:45 Labs: Laboratory Results - last 24 hr 01/06/23 07:45 Plt Count 251 PT 11.2 INR 1.0 APTT 36 Assessment & Plan Assessment and plan (1) Pneumothorax of right lung after biopsy: Status: Acute Plan Plan to keep the pigtail catheter to suction overnight. We will perform a follow up x-ray in the morning and if there is no air leak and no residual pneumothorax the pigtail catheter will be removed and she will be able to discharge home. Quality VTE Deep Vein Thrombosis/Pulmonary Embolism Present on Admission: No
--- NOTE | 2023-01-06 16:54 | SUR.PHASEII ---
1700 Pt transfered to room 203 in stretcher on 3L oxygen via NC by this RN. Ct tube to water seal for transfer. Pt stated improved pain control. VSS. Call in to see patient after transfer. SBAr report at bedside to Vida Cohn.
[2023-01-06] MEDS: HYDROCODONE/ACET 5/325 TABLET 1 TAB PO ×2 (18:16→22:48)
[2023-01-06] MEDS: ATORVASTATIN 20 MG TABLET PO (20:24)
[2023-01-06] MEDS: SODIUM CHLORIDE 0.9% FLUSH 10 ML IV (20:25)
--- NOTE | 2023-01-06 23:58 | PC.NURSE ---
Patient is alert and oriented. Breath sounds diminished on right but CTA. On oxygen at 2L/min per NC with sat of 93% but denied SOB either with exertion or at rest. Pigtail chest tube intact to right chest and connected to suction at 20cm; no air leak present. HRR. BP elevated but improved at 150/52; stated she did not take lisinopril today but declined to have it tonight. BT present and abdomen is soft. Denied dysuria with urination and has been getting out of bed to BSC with SBA. Dressing to upper back biopsy site is CDI. Pain in right chest at shift change was 4/10 and did have 6/10 pain earlier and was medicated by MANOLO Sandhu, with vicodin with pain decreasing to 4/10 at reassessment. Reports fall back in December so fall risk score is moderate but has been calling for assistance appropriately so bed alarm is not activated.
[2023-01-07 04:52] VITALS: BP 144/69; PULSE 65; RESP 16; TEMP 36.2; O2SAT 94
--- NOTE | 2023-01-07 08:00 | DI.RAD.S_ITS ---
PROCEDURE: XR CHEST 1V INDICATIONS: POST BIOPSY TECHNIQUE: One view of the chest was acquired. COMPARISON: [facility], CR, XR CHEST 1V, 01/06/2023, 14:14. FINDINGS: Surgical changes and devices: Right-sided pigtail pleural drain in the upper thorax. Lungs and pleura: No pneumothorax is appreciated. No pleural effusion. Opacity in the right upper lobe is nearly resolved. Mediastinum: Mediastinal contours appear unchanged. Heart size is normal. Bones and chest wall: No suspicious bony lesions. Overlying soft tissues appear unremarkable. IMPRESSION: Right-sided pneumothorax is resolved. Right-sided pleural drain is unchanged. Atelectasis in the right upper lobe is nearly resolved. Dictated by: Jermain Torres M.D. on 01/07/2023 at 9:11 Approved by: Jermain Torres M.D. on 01/07/2023 at 9:12
[2023-01-07 08:31] VITALS: BP 141/78; PULSE 68; RESP 16; TEMP 35.9; O2SAT 95
[2023-01-07 09:13] VITALS: BP 141/78; PULSE 68
[2023-01-07] MEDS: lisinopriL 20 MG TABLET PO (09:13)
[2023-01-07] MEDS: SODIUM CHLORIDE 0.9% FLUSH 10 ML IV (09:13)
[2023-01-07] MEDS: buPROPion XL 150 MG TAB PO (09:13)
--- NOTE | 2023-01-07 10:50 | PC.NURSE ---
Pt discharged home at 1050, escorted off floor in wheelchair accompanied by hospital staff. I removed, discharge teaching provided including worsening symptoms and follow up appointment. Questions and concerns addressed. Patient left the floor with all belongings.
--- NOTE | 2023-01-07 11:02 | CM.DANOTE ---
Brief DCP Assessment note Patient is a 67yo M here following a lung mass. PCP Dr. Tia BLANCO and self pay [employer] reviewed EMR. Per note, if x-ray clear today with no air leak cath will be removed and patient can d/c home today. From RN, no needs identified at this time, patient indep in room. Patient d/c home prior to being assessed by this [employer]. Plan: home with family today, transport in POV. No needs identified at this time. CM team will follow as needed. LISS King Discharge Planning/Care Management CM Discharge Assessment Start: 01/07/23 11:00 Freq: Status: Active Protocol: Document 01/07/23 11:00 (Rec: 01/07/23 11:02 [id number]) Discharge Planning Assessment Assigned Paraprofessional Education Assistant LISS Vanessa DPOA/Assigned Designee Name Gabino (son) Contact Information [phone] Advance Directives? No History Provided By Medical Record Prior Living Arrangements House Household Members family Independent with ADL's Yes Is patient alert and oriented? Yes Barriers to Discharge No Discharge Plan Home Transportation Arrangement POV Whiteboard Updated in Patient Room with No name and ext. # of Paraprofessional Education Assistant Review Status In Process Next Review Type Continued Stay Review
== END 2023-01-07 10:52 | disposition home or self-care (01) ==
LOC: OR 01-07 10:57 → AC 01-07 10:57
PROVIDERS: Radiology Diagnostic Radiology; Admitting Provider Surgery; PCP Family Medicine; Referring Provider Surgery; Visit Provider Surgery
PROC: BB24ZZZ Computerized Tomography (CT Scan) of Bilateral Lungs (ICD-10-PCS; CPT 32408; principal; 2023-01-06 08:30)
DX: J95.811 Postprocedural pneumothorax (principal); R91.8 Other nonspecific abnormal finding of lung field; F17.210 Nicotine dependence, cigarettes, uncomplicated
CPT/HCPCS: 32557; 32408; 71045; 85049; 85610; 85730; 99232; G0378; J1170; J2250; J3010

== ENCOUNTER → 2023-02-01 10:07 | Outpatient (CLI) | payer OTHER, SELFPAY ==
[2023-01-06 13:39] VITALS: BMI 20.9
[2023-02-01 11:17] LABS: Alanine Aminotransferase 19 IU/L (<35); Albumin 3.9 g/dL (3.5-5.0); Albumin Globulin Ratio 1.3 (1.0-2.8); Alkaline Phosphatase 58 U/L (38-126); Aspartate Aminotransferase 23 IU/L (14-36); BUN Creatinine Ratio 14.7 (6-22); Bilirubin Total 0.4 mg/dL (0.2-1.3); Blood Urea Nitrogen 10 mg/dL (7-17); Calcium 9.6 mg/dL (8.4-10.2); Carbon Dioxide 30 mmol/L (22-32); Chloride 101 mmol/L (98-107); Cholesterol 161 mg/dL (140-199); Estimated Glomerular Filt Rate > 60 mL/min (>60); Globulin 2.9 g/dL (1.7-4.1); Glucose 109 mg/dL (80-110); HDL Cholesterol 41 mg/dL (40-60); HEMOLYSIS < 15 (0-50); LDL Cholesterol Calculated 99 mg/dL (<100); Potassium 4.3 mmol/L (3.4-5.1); Sodium 137 mmol/L (137-145); Total Protein 6.8 g/dL (6.3-8.2); Triglycerides 105 mg/dL (35-150)
== END ==
PROVIDERS: PCP Family Medicine; Referring Provider Family Medicine; Visit Provider Family Medicine
DX: E78.5 Hyperlipidemia, unspecified (principal); F34.1 Dysthymic disorder; E78.2 Mixed hyperlipidemia; I10 Essential (primary) hypertension
CPT/HCPCS: 36415; 80053; 80061

== ENCOUNTER → 2023-02-07 09:43 | Outpatient (CLI) | payer OTHER, SELFPAY ==
[2023-01-06 13:39] VITALS: BMI 20.9
== END ==
PROVIDERS: PCP Family Medicine; Referring Provider Family Medicine; Visit Provider Family Medicine
DX: C34.90 Malignant neoplasm of unspecified part of unspecified bronchus or lung (principal); F17.210 Nicotine dependence, cigarettes, uncomplicated; J98.8 Other specified respiratory disorders
CPT/HCPCS: 94060; 94726; 94729

== ENCOUNTER → 2023-02-27 13:16 | Outpatient (CLI) | payer OTHER, SELFPAY ==
[2023-01-06 13:39] VITALS: BMI 20.9
--- NOTE | 2023-02-27 | DI.MRI.S_ITS ---
PROCEDURE: MR HEAD/BRAIN WO/W CON INDICATIONS: Nontoxic single thyroid nodule TECHNIQUE: Noncontrast axial T1 spin echo, axial T2 fast spin echo, sagittal and axial FLAIR, coronal T2 fast spin echo, axial gradient echo, axial diffusion and ADC through the brain. After the administration of contrast, axial and coronal and sagittal T1 spin echo with fat saturation through the brain. COMPARISON: None. FINDINGS: Image quality: Excellent. CSF spaces: Basal cisterns are patent. No extra-axial fluid collections. Ventricles are normal in size and shape. Brain: No midline shift. No intracranial masses. A few foci of hemosiderin deposition can be seen, with the most prominent seen within the right frontal lobe as on series 10, image 14. No abnormal intracranial enhancement. There is cerebral volume loss for age. There is periventricular white matter chronic small vessel ischemic change. The brainstem appears normal. Diffusion-weighted images demonstrate no acute infarct. No chronic ischemic insults. Normal intravascular flow voids are present. Skull and face: Calvarial marrow is normal in signal. Orbits appear normal. Note is made of bilateral lens replacements. Sinuses: Sinuses and mastoids appear clear. IMPRESSION: No masses or abnormal enhancement can be seen. A few foci of prior hemosiderin deposition can be seen. Please correlate with prior trauma. Dictated by: Dat Owens M.D. on 02/27/2023 at 14:26 Approved by: Dat Owens M.D. on 02/27/2023 at 14:27
--- NOTE | 2023-02-27 13:19 | DI.US.S_ITS ---
PROCEDURE: US THYROID INDICATIONS: THYROID NODULE TECHNIQUE: Real-time scanning was performed of the thyroid gland, with image documentation. COMPARISON: None. FINDINGS: Right: Thyroid lobe measures 3.8 x 1.5 x 1.8 cm, and is homogeneous in echotexture. Left: Thyroid lobe measures 3.3 x 1.7 x 1.4 cm, and is homogenous in echotexture. Isthmus: 0.3 cm thick. Nodule number: 1 Location: Right superior pole 4 mm colloid cyst. Nodule number: 2 Location: Right midpole Size: 1.9 x 1.9 x 0.9 cm. Composition: Solid Echogenicity: Mildly hypoechoic to isoechoic Shape: wider than tall. Margins: Smooth Echogenic foci: No Total points: 3-4 ACR TI-RADS category: Mild to moderately suspicious Nodule number: 3 Location: Right inferior pole 5 mm colloid cyst. IMPRESSION: 1. 1.9 cm solid nodule in the right mid thyroid lobe with mild to moderately suspicious features. Recommend follow-up in 1 year. ACR TI-RADS definitions and recommendations: TI-RADS 1 (benign): 0 points. FNA not needed. TI-RADS 2 (not suspicious): 2 points. FNA not needed. TI-RADS 3 (mildly suspicious): 3 points. * FNA if 2.5 cm or larger, follow up if 1.5 cm or larger (at 1, 3, and 5 years). TI-RADS 4 (moderately suspicious): 4-6 points. * FNA if 1.5 cm or larger, follow up if 1 cm or larger (at 1, 2, 3, and 5 years). TI-RADS 5 (highly suspicious): 7 points or more. * FNA if 1 cm or larger, follow up if 0.5 cm or larger (every year for 5 years). Dictated by: Tanya Harley M.D. on 02/27/2023 at 17:01 Approved by: Tanya Harley M.D. on 02/27/2023 at 17:05
== END ==
PROVIDERS: PCP Family Medicine; Referring Provider Family Medicine; Visit Provider Family Medicine
DX: C34.11 Malignant neoplasm of upper lobe, right bronchus or lung (principal); E04.2 Nontoxic multinodular goiter; R91.1 Solitary pulmonary nodule
CPT/HCPCS: 70553; 76536; A9579

== ENCOUNTER → 2023-03-01 09:44 | Outpatient (CLI) | payer OTHER, SELFPAY ==
[2023-01-06 13:39] VITALS: BMI 20.9
--- NOTE | 2023-03-01 | DI.CT.S_ITS ---
PROCEDURE: CT CHEST W CON INDICATIONS: ADENOCARCINOMA OF LUNG TECHNIQUE: After the administration of intravenous contrast, 5 mm thick sections acquired from the pulmonary apices to the posterior costophrenic angles. 1 mm axial lung, 5 mm thick coronal and sagittal reformats and 7 mm axial MIP were acquired. For radiation dose reduction, the following was used: automated exposure control, adjustment of mA and/or kV according to patient size. COMPARISON: [facility], CT, CT BIOPSY LUNG RT, 01/06/2023, 8:45. [facility], CT, CT DRN/CHEST TUB INSERT THORAX, 01/06/2023, 12:38. [facility], CT, CT LUNG LOW DOSE SCREENING, 11/25/2022, 13:48. FINDINGS: Image quality: Diagnostic. Lower Neck: No enlarged lymph nodes. Thyroid: Stable nodule in the right thyroid gland with central hypoattenuation measuring 1.7 x 1 cm (2/7). Axillae: No enlarged lymph nodes. Chest Wall: Unremarkable. Bones: Unremarkable. Lungs and Pleura: Compared to CT chest dated November 25, 2022, slightly increased conspicuity of right upper lobe spiculated nodule measuring up to 1.3 cm (3/177), previously 1.1 cm (3/87). Similar appearance of nodule in the right middle lobe measuring 7 mm with surrounding ground-glass and questionable spiculation (3/155). Stable right upper lobe ground-glass opacity measuring 6 mm (3/53). Stable focus of peripheral ground-glass in the right lower lobe with central lucency (3/232). A few scattered subcentimeter calcified granulomas and noncalcified pulmonary nodules. Moderate to severe apical predominant centrilobular and paraseptal emphysema. No pneumothorax or pleural effusions. Heart: Heart size is normal. No pericardial effusion. Mild LAD and right coronary vessel calcifications. Thoracic Vessels: The aorta and pulmonary arteries demonstrate normal size. No filling defects in the central pulmonary vasculature. Mild calcification of the thoracic aorta. Mediastinum and Naima: No enlarged lymph nodes. A few subcentimeter calcified granulomas, likely sequela of prior granulomatous infection. Esophagus: No wall thickening. Small hiatal hernia. Upper Abdomen: Visualized upper abdomen solid organs and bowel loops demonstrates no acute findings. Simple cyst in the left hepatic lobe. Additional subcentimeter hypodensities are too small to characterize. Calcification of the abdominal aorta and visualized branch vessels. IMPRESSION: 1. Compared to CT chest dated November 25, 2022, slightly increased conspicuity of right upper lobe spiculated nodule measuring 1.3 cm, previously 1.1 cm, compatible with biopsy proven malignancy. 2. Stable nodule in the right middle lobe measuring 7 mm with surrounding ground-glass and possible spiculation. Attention on follow-up. Additional stable nodules, as described above. 3. No suspicious adenopathy. 4. Moderate to severe apical predominant emphysema. 5. Stable right thyroid lobe nodule measuring 1.7 cm. Based on size, recommend a nonemergent thyroid ultrasound for further characterization. Dictated by: Ko March M.D. on 03/02/2023 at 11:28 Approved by: Ko March M.D. on 03/02/2023 at 13:15
== END ==
PROVIDERS: PCP Family Medicine; Referring Provider Thoracic Surgery (Cardiothoracic Vascular Surgery); Visit Provider Thoracic Surgery (Cardiothoracic Vascular Surgery)
DX: C34.90 Malignant neoplasm of unspecified part of unspecified bronchus or lung (principal); J43.9 Emphysema, unspecified; R91.8 Other nonspecific abnormal finding of lung field; E04.1 Nontoxic single thyroid nodule
CPT/HCPCS: 71260; Q9967

== ENCOUNTER → 2023-05-08 11:34 | Outpatient (CLI) | payer OTHER, SELFPAY ==
[2023-01-06 13:39] VITALS: BMI 20.9
--- NOTE | 2023-05-08 11:36 | DI.CT.S_ITS ---
PROCEDURE: CT CHEST WO CON INDICATIONS: Malignant neoplasm of upper lobe, right lunch TECHNIQUE: Noncontrast 5 mm thick sections acquired from the pulmonary apices to the posterior costophrenic angles. 1 mm lung window, 5 mm thick coronal and sagittal and 7 mm axial MIP reformats were then acquired. For radiation dose reduction, the following was used: automated exposure control, adjustment of mA and/or kV according to patient size. COMPARISON: [facility], CT, CT CHEST W CON, 03/01/2023, 10:11. FINDINGS: Image quality: Diagnostic. Lower Neck: No enlarged lymph nodes. Thyroid: Stable hypoattenuating nodule within the right thyroid gland measuring 1.9 x 1.2 cm. Axillae: No enlarged lymph nodes. Chest Wall: Calcifications in the left breast are redemonstrated. Bones: Degenerative changes of the spine. Lungs and Pleura: Grossly similar appearance of right upper lobe spiculated opacity measuring 1.5 x 1.2 cm, previously 1.7 x 1.2 cm (3/86). Grossly similar appearance of nodule within the right middle lobe measuring up to 7 mm with surrounding ground-glass and possible spiculations (3/157). Stable right upper lobe focus of ground-glass measuring approximately 6 mm (3/59). Stable focus of peripheral ground-glass in the right lower lobe with central lucency (3/224). Scattered calcified granulomas and a few additional smaller pulmonary nodules are noted and similar appearance to prior. No definite new or enlarging pulmonary nodules. Moderate to severe centrilobular and paraseptal emphysematous changes within apical predominance. Heart: Heart size is normal. Mild coronary artery calcifications. No pericardial effusion. Thoracic Vessels: The aorta and pulmonary arteries demonstrate normal size. Atherosclerotic vascular calcifications. Mediastinum and [place]: No enlarged lymph nodes. Esophagus: No wall thickening. Small hiatal hernia. Upper Abdomen: Visualized upper abdomen solid organs and bowel loops appear normal. Hepatic simple cysts are redemonstrated. Additional subcentimeter hypodensities are present which are too small technique characterize and stable compared to prior. Calcification within the right hepatic lobe. IMPRESSION: 1. Overall similar size and appearance of pulmonary nodules as described above. No definite new or enlarging pulmonary nodules are seen. 2. No enlarged lymph nodes are seen. 3. Stable right thyroid lobe nodule, dedicated thyroid ultrasound is recommended if not previously performed. Dictated by: Danish Zhu M.D. on 05/08/2023 at 15:50 Approved by: Danish Zhu M.D. on 05/08/2023 at 16:03
== END ==
PROVIDERS: PCP Family Medicine; Referring Provider Radiology Radiation Oncology; Visit Provider Radiology Radiation Oncology
DX: C34.11 Malignant neoplasm of upper lobe, right bronchus or lung (principal); R91.8 Other nonspecific abnormal finding of lung field; E04.1 Nontoxic single thyroid nodule; I25.10 Atherosclerotic heart disease of native coronary artery without angina pectoris
CPT/HCPCS: 71250

== ENCOUNTER → 2024-01-15 15:12 | Outpatient (CLI) | payer OTHER, SELFPAY ==
[2023-01-06 13:39] VITALS: BMI 20.9
[2024-01-15 17:09] LABS: Add Manual Diff / Slide Review NO; Basophils Absolute Auto 0 /uL (0-100); Basophils Percent Auto 0.7 % (0-2); Eosinophils Absolute Auto 100 /uL (0-450); Eosinophils Percent Auto 0.9 % (2-4); Hematocrit 40.8 % (36-46); Hemoglobin 13.7 g/dL (12.0-16.0); Lymphocytes Absolute Auto 1600 /uL (1100-4500); Lymphocytes Percent Auto 27.5 % (25-40); Mean Corpuscular HGB Conc 33.6 % (30-36); Mean Corpuscular Hemoglobin 30.7 PG (26-34); Mean Corpuscular Volume 91.4 fL (80-100); Monocytes Absolute Auto 500 /uL (0-900); Monocytes Percent Auto 7.8 % (3-14); Neutrophils Absolute Auto 3800 /uL (1500-7000); Neutrophils Percent Auto 63.1 % (50-75); Platelet Count 288 X10^3/uL (150-400); Red Blood Cell Count 4.46 X10^6/uL (4.0-5.2); Red Cell Distribution Width 13.8 % (11.6-14.8)
[2024-01-15 17:32] LABS: Alanine Aminotransferase 16 IU/L (<35); Albumin 4.2 g/dL (3.5-5.0); Albumin Globulin Ratio 1.4 (1.0-2.8); Alkaline Phosphatase 63 U/L (38-126); Aspartate Aminotransferase 26 IU/L (14-36); BUN Creatinine Ratio 11.3 (6-22); Bilirubin Total 0.4 mg/dL (0.2-1.3); Blood Urea Nitrogen 8 mg/dL (7-17); Calcium 9.5 mg/dL (8.4-10.2); Carbon Dioxide 28 mmol/L (22-32); Chloride 101 mmol/L (98-107); Cholesterol 171 mg/dL (140-199); Estimated Glomerular Filt Rate > 60 mL/min (>60); Glucose 103 mg/dL (80-110); HDL Cholesterol 54 mg/dL (40-60); HEMOLYSIS < 15 (0-50); LDL Cholesterol Calculated 94 mg/dL (<100); Potassium 4.2 mmol/L (3.4-5.1); Sodium 135 mmol/L (137-145); Total Protein 7.2 g/dL (6.3-8.2); Triglycerides 114 mg/dL (35-150)
[2024-01-15 17:57] LABS: Creatinine Urine Random 37.73 mg/dL
[2024-01-15 18:07] LABS: TSH w/ Reflex to FT4 1.56 uIU/mL (0.47-4.68)
[2024-01-15 18:11] LABS: Microalbumin Urine Random < 0.6 mg/dL (0-1.6)
== END ==
PROVIDERS: PCP Family Medicine; Referring Provider Family Medicine; Visit Provider Family Medicine
DX: E78.5 Hyperlipidemia, unspecified (principal); F32.9 Major depressive disorder, single episode, unspecified; I10 Essential (primary) hypertension; F34.1 Dysthymic disorder; E04.1 Nontoxic single thyroid nodule; C34.90 Malignant neoplasm of unspecified part of unspecified bronchus or lung
CPT/HCPCS: 36415; 80053; 80061; 82043; 82570; 84443; 85025

== ENCOUNTER → 2024-02-03 15:11 | Outpatient (CLI) | payer OTHER, SELFPAY ==
[2023-01-06 13:39] VITALS: BMI 20.9
--- NOTE | 2024-02-03 15:11 | DI.US.S_ITS ---
PROCEDURE: US THYROID INDICATIONS: F/U NODULE TECHNIQUE: Real-time scanning was performed of the thyroid gland, with image documentation. COMPARISON: [facility], US, US THYROID, 02/27/2023, 13:28. FINDINGS: Thyroid: Right lobe measures 4.9 x 1.9 x 1.6 cm. Left lobe measures 4.1 x 1.2 x 1.4 cm. Isthmus is 0.2 cm thick. Echotexture is homogeneous. Nodule number: 1 Location: Right mid thyroid lobe Size: 1.9 x 1.1 x 2.1 cm. Composition: Solid Echogenicity: Isoechoic Shape: wider than tall. Margins: Smooth Echogenic foci: None Total points: 3 ACR TI-RADS category: Mildly suspicious IMPRESSION: Redemonstration of 2.1 cm TI-RADS 3 right thyroid nodule which has increased slightly in size compared to the prior study. Based off consensus criteria, recommend next follow-up ultrasound in 2 years. ACR TI-RADS definitions and recommendations: TI-RADS 1 (benign): 0 points. FNA not needed. TI-RADS 2 (not suspicious): 2 points. FNA not needed. TI-RADS 3: 3 points. * FNA if 2.5 cm or larger, follow up if 1.5 cm or larger (at 1, 3, and 5 years). TI-RADS 4: 4-6 points. * FNA if 1.5 cm or larger, follow up if 1 cm or larger (at 1, 2, 3, and 5 years). TI-RADS 5: 7 points or more. * FNA if 1 cm or larger, follow up if 0.5 cm or larger (every year for 5 years). Dictated by: Ken Hernandez M.D. on 02/03/2024 at 16:41 Approved by: Ken Hernandez M.D. on 02/03/2024 at 16:53
== END ==
PROVIDERS: PCP Family Medicine; Referring Provider Family Medicine; Visit Provider Family Medicine
DX: E04.1 Nontoxic single thyroid nodule (principal)
CPT/HCPCS: 76536